=== PATIENT | female | born 1950 | race Caucasian/White ===

== ENCOUNTER 2017-06-09 14:08 | Outpatient (CLI) | payer OTHER ==
--- NOTE | 2017-06-10 13:02 | Mammography Report ---
DIGITAL SCREENING MAMMOGRAM: 06/09/2017 CLINICAL INDICATION: A 67-year-old for screening. COMPARISON: 12/2014, 12/2010, 10/2009, 09/2008, 04/2007. TECHNIQUE: Routine CC and MLO projections were obtained of the breasts. FINDINGS: The breasts again demonstrate scattered fibroglandular densities bilaterally. A few punct ate, typically benign calcifications are present. In the left upper inner central breast, there is a possible nodule. Further evaluation with spot compression views and possible ultrasound is recommen ded. No mammographically suspicious findings are appreciated in the right breast. IMPRESSION: INCOMPLETE EXAMINATION. RECOMMENDATION: Additional evaluation of the left breast as above. BI-RADS category 0, incomplete. STANDARD QUALIFYING STATEMENTS 1. This examination was reviewed with the aid of Computer-Aided Detection (CAD). 2. A negative or benign imaging report should not delay biopsy if clinically suspicious findings are present. Consider surgical consultation if warranted. More than 5% of cancers are not identified by i maging. 3. Dense breasts may obscure an underlying neoplasm. JOB #: [id number] EXT JOB #:[id number]
== END 2017-06-09 14:09 | disposition home or self-care (01) ==
LOC: DI 14:08
PROVIDERS: ATTEND Internal Medicine
DX: Z12.31 Encounter for screening mammogram for malignant neoplasm of breast (principal); R92.8 Other abnormal and inconclusive findings on diagnostic imaging of breast
CPT/HCPCS: 77067

== ENCOUNTER 2017-06-25 11:00 | Outpatient (CLI) | payer OTHER, MEDICARE, BC ==
--- NOTE | 2017-06-25 16:22 | DEXA Report ---
DEXA SCAN: 06/25/2017 CLINICAL INDICATION: Osteopenia. TECHNIQUE: Dual energy x-ray absorptiometry (DXA) was performed on a [employer] system. Regions measured are the AP spine, femoral neck, and, if needed, forearm. COMPARISON: None. In accordance with the International Society for Clinical Densitometry (ISCD) guidelines, data from previous exams may be reanalyzed using current recommendations and techniques. This is done to allow a more accurate basis for comparison with the current study. FINDINGS The data for the lumbar spine is as follows: REGION BMD (g/cm/cm) T-SCORE Z-SCORE L1 0.994 -1.1 -0.3 L2 1.051 -1.2 -0.4 L3 1.052 -1.2 -0.4 L4 1.148 -0.4 0.4 TOTAL 1.066 -1.0 -0.1 NOTE: All evaluable vertebrae are used for classification. The data for the hip is as follows: REGION BMD (g/cm/cm) T-SCORE Z-SCORE Neck 0.811 -1.6 -0.6 TOTAL 0.832 -1.4 -0.7 NOTE: The femoral neck or total proximal femur, whichever is lowest, is used for classification. IMPRESSION: THE WHO CLASSIFICATION BASED ON THE INTERNATIONAL REFERENCE STANDARD IS OSTEOPENIA. THE FRACTURE RISK IS INCREASED. RECOMMENDATION: Patients with diagnosis of osteoporosis or osteopenia should have regular bone mineral density assessment. For those eligible for Medicare, routine testing is allowed once every 2 years. Testing frequency can be increased for patients who have rapidly progressing disease or for those who are receiving medical therapy to restore bone mass. COMMENT: World Health Organization (WHO) definitions for osteoporosis and osteopenia: NORMAL BMD: T-score at -1.0 or higher, fracture risk is low. OSTEOPENIA BMD: T-score between -1.0 and -2.5, fracture risk is increased. OSTEOPOROSIS BMD: T-score at -2.5 or lower, fracture risk high. National Osteoporosis Foundation recommends: 1. Obtain adequate dietary calcium (at least 1200 mg per day) and vitamin D (400 -800 international units per day). 2. Participate, as appropriate, in regular weightbearing and muscle- strengthening exercise. 3. Avoid tobacco use and reduce alcohol and caffeine intake. 4. For more detailed information see the website at www.NOF.org. MTDD
== END 2017-06-25 11:01 | disposition home or self-care (01) ==
LOC: DI 11:00
PROVIDERS: ATTEND Internal Medicine
DX: M85.88 Other specified disorders of bone density and structure, other site (principal)
CPT/HCPCS: 77080

== ENCOUNTER 2017-12-13 15:48 | Emergency (ER) | payer MEDICARE, BC ==
[2017-12-13] MEDS ORDERED: SODIUM CHLORIDE 0.9% 1,000 ML IV ONE (16:28)
--- NOTE | 2017-12-13 16:32 | ED Physician Documentation ---
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 She noted that while she was in [place] her blood pressure was normal and upon return she took her blood pressure on a lark and discovered it was elevated. She has become concerned with this and has taken her blood pressure more and is having some pain in her right arm. She has come to the emergency department after having diastolics over 110. She denies chest pain she denies syncope she denies shortness of breath. Review of Systems Constitutional: denies: Fever, Chills, Myalgias Eyes: denies: Decreased vision Ears: denies: Ear pain Nose: denies: Rhinorrhea / runny nose, Congestion Throat: denies: Sore throat Cardiac: denies: Chest pain / pressure, Palpitations Respiratory: denies: Dyspnea, Cough GI: denies: Abdominal Pain, Nausea, Vomiting, Constipation, Diarrhea : denies: Dysuria, Frequency Skin: denies: Rash Musculoskeletal: reports: Extremity pain. denies: Neck pain, Back pain Neurologic: denies: Generalized weakness, Focal weakness, Numbness, Headache, Head injury, LOC PD PAST MEDICAL HISTORY - Past Medical History Past Medical History: Yes Cardiovascular: High cholesterol, Valve disorder Respiratory: Asthma Endocrine/Autoimmune: HyPOthyroidism GI: GERD, Hemorrhoids BRIDGE CRANE OPERATOR: None : None Psych: ADD/ADHD, Claustrophobia Musculoskeletal: Chronic back pain Derm: None - Past Surgical History Past Surgical History: Yes General: EGD, Appendectomy, Colonoscopy Ortho: Spine surgery /BRIDGE CRANE OPERATOR: Dilation and currettage - Allergies Allergies/Adverse Reactions: Allergies Allergy/AdvReac Type Severity Reaction Status Date / Time cephalexin [Cephalexin] Allergy Intermediate Hives Verified 12/13/17 16:14 codeine [Codeine] Allergy Intermediate Hives Verified 12/13/17 16:14 Penicillins Allergy Intermediate Hives Verified 12/13/17 16:14 - Social History Does the pt smoke?: No Smoking Status: Never smoker Does the pt drink ETOH?: Yes Does the pt have substance abuse?: No - Immunizations Immunizations are current?: Yes - POLST Patient has POLST: No PD ED PE NORMAL - Vitals Vital signs reviewed: Yes (tachy and hypertensive mild ) - General General: Alert and oriented X 3, No acute distress - HEENT HEENT: Atraumatic, PERRL, EOMI - Neck Neck: Supple, no meningeal sign, No bony TTP - Cardiac Cardiac: RRR, No murmur - Respiratory Respiratory: No respiratory distress, Clear bilaterally - Abdomen Abdomen: Soft, Non tender - Back Back: No CVA TTP, No spinal TTP - Derm Derm: Normal color, Warm and dry, No rash - Extremities Extremities: No deformity, No edema - Neuro Neuro: Alert and oriented X 3, 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 ) Compare to prior EKG: Old EKG unavailable Computer interpretation: Disagree with computer (I cannot make out ST elevation in the other leads. ) - Labs Labs: Laboratory Tests 12/13/17 12/13/17 12/13/17 16:35 16:35 16:35 WBC 8.4 RBC 4.46 Hgb 13.3 Hct 40.0 MCV 89.6 MCH 29.8 MCHC 33.3 RDW 12.9 Plt Count 289 MPV 7.5 L Neut # 4.9 Lymph # 2.7 Jay # 0.5 Eos # 0.1 Baso # 0.1 Absolute Nucleated RBC 0.01 Nucleated RBC % 0.1 Sodium 141 Potassium 3.4 L Chloride 104 Carbon Dioxide 27 Anion Gap 10.0 BUN 20 Creatinine 1.1 H Estimated GFR (MDRD) 50 L Glucose 130 H Calcium 9.6 Total Bilirubin 0.5 AST 28 ALT 32 Alkaline Phosphatase 75 Troponin I < 0.04 Total Protein 7.6 Albumin 4.2 Globulin 3.4 Albumin/Globulin Ratio 1.2 Lipase 10 L Urine Color Urine Clarity Urine pH Ur Specific Adams Urine Protein Urine Glucose (UA) Urine Ketones Urine Occult Blood Urine Nitrite Urine Bilirubin Urine Urobilinogen Ur Leukocyte Esterase Ur Microscopic Review Urine Culture Comments 12/13/17 17:40 WBC RBC Hgb Hct MCV MCH MCHC RDW Plt Count MPV Neut # Lymph # Jay # Eos # Baso # Absolute Nucleated RBC Nucleated RBC % Sodium Potassium Chloride Carbon Dioxide Anion Gap BUN Creatinine Estimated GFR (MDRD) Glucose Calcium Total Bilirubin AST ALT Alkaline Phosphatase Troponin I Total Protein Albumin Globulin Albumin/Globulin Ratio Lipase Urine Color YELLOW Urine Clarity CLEAR Urine pH 6.5 Ur Specific Adams 1.015 Urine Protein NEGATIVE Urine Glucose (UA) NEGATIVE Urine Ketones NEGATIVE Urine Occult Blood NEGATIVE Urine Nitrite NEGATIVE Urine Bilirubin NEGATIVE Urine Urobilinogen 0.2 (NORMAL) Ur Leukocyte Esterase NEGATIVE Ur Microscopic Review NOT INDICATED Urine Culture Comments NOT INDICATED PD MEDICAL DECISION MAKING - ED course Complexity details: reviewed results, re-evaluated patient, considered differential, d/w patient, d/w family ED course: 67-year-old female with a new onset of hypertension is found to be mildly dehydrated after a trip to [place]. She is administered saline and trop is checked. Everything else checks out OK and she is discharged with encouragement to attempt all modes to improve blood pressure prior to initiation of treatment. Departure - Departure Disposition: 01 Home, Self Care Clinical Impression: Dehydration Hypertension Qualifiers: Hypertension type: unspecified Qualified Code(s): I10 - Essential (primary) hypertension Condition: Stable Instructions: ED Dehydration, ED Hypertension Poss Follow-Up: César Galloway MD [Primary Care Provider] - Comments: Today in the Emergency Department your blood pressure was elevated. This can happen from the stress of the visit itself, from a current illness or circumstance or from uncontrolled hypertension. If you take blood pressure medications take your usual mediations, have your blood pressure re-checked in an appropriate setting and follow up any elevation with your primary care doctor. Discharge Date/Time: 12/13/17 18:41
[2017-12-13 16:43] LABS: BASOPHILS # (AUTO) 0.1 10^3/uL (0.0-0.1); BASOPHILS % (AUTO) 0.8 %; EOSINOPHILS # (AUTO) 0.1 10^3/uL (0.0-0.7); EOSINOPHILS % (AUTO) 1.7 %; HGB - HEMOGLOBIN 13.3 g/dL (12.0-16.0); LYMPHOCYTES # (AUTO) 2.7 10^3/uL (1.5-3.5); LYMPHOCYTES % (AUTO) 32.2 %; MEAN CORPUSCULAR HEMOGLOBIN 29.8 pg (27.0-31.0); MEAN CORPUSCULAR HGB CONC 33.3 g/dL (32.0-36.0); MEAN CORPUSCULAR VOLUME 89.6 fL (81.0-99.0); MEAN PLATELET VOLUME 7.5 fL (7.9-10.8); MONOCYTES # (AUTO) 0.5 10^3/uL (0.0-1.0); MONOCYTES % (AUTO) 6.5 %; NEUTROPHILS # (AUTO) 4.9 10^3/uL (1.5-6.6); NEUTROPHILS % (AUTO) 58.8 %; PLT - PLATELET COUNT 289 10^3/uL (130-450); RED BLOOD COUNT 4.46 10^6/uL (4.20-5.40); RED CELL DISTRIBUTION WIDTH 12.9 % (12.0-15.0); WHITE BLOOD COUNT 8.4 x10^3/uL (4.8-10.8)
[2017-12-13 16:57] LABS: ALBUMIN 4.2 g/dL (3.2-5.5); ALBUMIN/GLOBULIN RATIO 1.2 (1.0-2.2); BILIRUBIN,TOTAL 0.5 mg/dL (0.2-1.0); CALCIUM 9.6 mg/dL (8.5-10.3); CREATININE 1.1 mg/dL (0.4-1.0); TOTAL PROTEIN 7.6 g/dL (6.7-8.2)
[2017-12-13] MEDS ORDERED: POTASSIUM BICARB 25 MEQ TABLET PO STA (17:13)
[2017-12-13 17:45] LABS: BILIRUBIN,URINE NEGATIVE (NEGATIVE); GLUCOSE, URINE (UA) NEGATIVE (NEGATIVE); KETONES,URINE (UA) NEGATIVE (NEGATIVE); LEUKOCYTE ESTERASE, URINE NEGATIVE (NEGATIVE); NITRITE,URINE NEGATIVE (NEGATIVE); OCCULT BLOOD,URINE NEGATIVE (NEGATIVE); PH,URINE 6.5 PH (5.0-7.5); PROTEIN,URINE NEGATIVE (NEGATIVE); UROBILINOGEN,URINE 0.2 (NORMAL) E.U./dL (NORMAL)
[2017-12-13 17:47] LABS: CLARITY,URINE CLEAR (CLEAR)
[2017-12-13 18:14] VITALS: BP 176/96
== END 2017-12-13 18:41 | disposition home or self-care (01) ==
LOC: ED 15:48
DX: E86.0 Dehydration (principal); I10 Essential (primary) hypertension; J45.909 Unspecified asthma, uncomplicated; E78.00 Pure hypercholesterolemia, unspecified; E03.9 Hypothyroidism, unspecified
CPT/HCPCS: 36415; 80053; 81003; 83690; 84484; 85025; 93005; 96360; 99283; 99284; A9270; 81001; 87086

== ENCOUNTER 2018-10-13 16:21 | Outpatient (CLI) | payer MEDICARE, BC ==
[2018-10-13 16:41] LABS: BASOPHILS # (AUTO) 0.1 10^3/uL (0.0-0.1); BASOPHILS % (AUTO) 0.7 %; EOSINOPHILS # (AUTO) 0.1 10^3/uL (0.0-0.7); EOSINOPHILS % (AUTO) 1.5 %; HGB - HEMOGLOBIN 13.3 g/dL (12.0-16.0); LYMPHOCYTES % (AUTO) 33.7 %; MEAN CORPUSCULAR HEMOGLOBIN 30.5 pg (27.0-31.0); MEAN CORPUSCULAR HGB CONC 33.2 g/dL (32.0-36.0); MEAN CORPUSCULAR VOLUME 91.7 fL (81.0-99.0); MEAN PLATELET VOLUME 7.9 fL (7.9-10.8); MONOCYTES # (AUTO) 0.3 10^3/uL (0.0-1.0); MONOCYTES % (AUTO) 3.9 %; NEUTROPHILS # (AUTO) 5.4 10^3/uL (1.5-6.6); NEUTROPHILS % (AUTO) 60.2 %; PLT - PLATELET COUNT 317 10^3/uL (130-450); RED BLOOD COUNT 4.36 10^6/uL (4.20-5.40); RED CELL DISTRIBUTION WIDTH 13.3 % (12.0-15.0); WHITE BLOOD COUNT 8.9 x10^3/uL (4.8-10.8)
[2018-10-13 16:56] LABS: ALKALINE PHOSPHATASE 74 IU/L (42-121); ALT ALANINE AMINOTRANSFERASE 31 IU/L (10-60); AST ASPARTATE AMINOTRANSFERASE 33 IU/L (10-42); BILIRUBIN,TOTAL 0.5 mg/dL (0.2-1.0); BUN - BLOOD UREA NITROGEN 19 mg/dL (6-20); CREATININE 0.9 mg/dL (0.4-1.0); GFR - MDRD 63 (>89); TOTAL PROTEIN 7.3 g/dL (6.7-8.2)
[2018-10-13 18:11] LABS: BILIRUBIN,DIRECT < 0.1 mg/dL (0.1-0.5)
--- NOTE | 2018-10-14 02:07 | XRAY Report ---
Reason: COUGH Procedure Date: 10/13/2018 Accession Number: [id number] / [id number] Procedure: XR - Chest 2 View X-Ray CPT Code: 02714 FULL RESULT: EXAM: CHEST RADIOGRAPHY EXAM DATE: 10/13/2018 04:58 PM. CLINICAL HISTORY: Cough for months COMPARISON: CHEST 2 VIEW PA/LAT 12/30/2014 3:00 PM. TECHNIQUE: 2 views. FINDINGS: Lungs/Pleura: No focal opacities evident. No pleural effusion. No pneumothorax. Normal volumes. Mediastinum: Heart and mediastinal contours are unremarkable. Other: Lower cervical spinal fixation hardware. IMPRESSION: Stable appearance of the chest without acute cardiopulmonary abnormality. RADIA
== END 2018-10-13 16:22 | disposition home or self-care (01) ==
LOC: DI 16:21
PROVIDERS: ATTEND Internal Medicine
DX: R05 Cough (principal); B35.1 Tinea unguium
CPT/HCPCS: 36415; 71046; 80076; 82565; 84520; 85025

== ENCOUNTER 2021-05-30 10:06 | Outpatient (CLI) | payer MEDICARE, BC ==
--- NOTE | 2021-05-31 08:40 | Mammography Report ---
BILATERAL DIGITAL SCREENING MAMMOGRAM 3D/2D: 05/30/2021 CLINICAL: Routine screening. Comparison is made to exams dated: 07/23/2017 ultrasound, 07/23/2017 mammogram, 06/09/2017 mammogram, mammogram, and 12/15/2010 mammogram - [facility]. There are scattered fibro glandular elements in both breasts. No significant masses, calcifications, or other findings are seen in either breast. There has been no significant interval change. IMPRESSION: NEGATIVE There is no mammographic evidence of malignancy. A 1 year screening mammogram is recommended. This exam was interpreted at Station ID: [id number]. NOTE: For mammograms, a report in lay terms will be sent to the patient. Approximately 15% of breast malignancies will not be visualized mammographically. In the management of a palpable breast mass, a negative mammogram must not discourage biopsy of a clinically suspicious lesion. Electronically Signed By: Javier Stephens M.D., jr/penrad:05/30/2021 16:37:59 ACR BI-RADS Category 1: Negative 3341F PARENCHYMAL PATTERN: (A) - The breast(s) demonstrate(s) scattered fibroglandular densities. BI-RADS CATEGORY: (1) - 1 RECOMMENDATION: (ANNUAL) - Recommend routine annual screening mammography. [id number] 1 year screening LATERALITY: (B)
== END 2021-05-30 10:07 | disposition home or self-care (01) ==
LOC: DI 10:06
DX: Z12.31 Encounter for screening mammogram for malignant neoplasm of breast (principal)

== ENCOUNTER 2021-05-30 11:17 | Outpatient (CLI) | payer MEDICARE, BC ==
--- NOTE | 2021-05-30 16:33 | DEXA Report ---
PROCEDURE: Dexa Spine and/or Hip INDICATIONS: OSTEOPENIA TECHNIQUE: Dual energy x-ray absorptiometry (DXA) was performed on a [employer] System. Regions measur ed are the AP Spine, femoral neck, and if needed forearm. COMPARISON: DEXA 06/25/2017 FINDINGS: Lumbar Spine: Bone Mineral Density 1.102 g/cm/cm,T score -0.7, compared to -1.0 Left Hip: Bone Mineral Density 0.840 g/cm/cm,T score -1.3, compared to -1.4 Left Femoral Neck: Bone Mineral Density 0.797 g/cm/cm, T score -1.7, compared to -1.6 (T score greater or equal to -1.0: NORMAL) (T score from -1.1 to -2.4: OSTEOPENIA) (T score less than or equal to -2.5 to: OSTEOPOROSIS) Impression: Minimal progressive appearance of moderate osteopenia within the left femoral neck with m inimal increased bone mineral density of the left hip, minimal osteopenia as well as improved bone mi neral density of the lumbar spine. Patients with diagnosis of osteoporosis or osteopenia should have regular bone mineral density assess ment. For those eligible for Medicare, routine testing is allowed once every 2 years. Testing frequ ency can be increased for patients who have rapidly progressing disease or for those who are receivin g medical therapy to restore bone mass. Reviewed by: Mabel Deluca MD on 05/30/2021 4:31 PM PDT Approved by: Mabel Deluca MD on 05/30/2021 4:31 PM PDT Station ID: [id number]
== END 2021-05-30 11:18 | disposition home or self-care (01) ==
LOC: DI 11:17
PROVIDERS: ATTEND Physician Assistant
DX: M85.89 Other specified disorders of bone density and structure, multiple sites (principal)

== ENCOUNTER 2021-06-02 13:34 | Outpatient (CLI) | payer MEDICARE, BC | END 2021-06-02 13:35 | disposition home or self-care (01) | LOC: RT 13:34 | PROVIDERS: ATTEND Physician Assistant | DX: J45.909 Unspecified asthma, uncomplicated (principal) | CPT/HCPCS: 94060 ==

== ENCOUNTER 2021-06-15 12:23 | Outpatient (CLI) | payer MEDICARE, BC ==
[2021-06-15] MEDS ORDERED: IOVERSOL 320 50 ML VIAL ONE (12:39)
[2021-06-15] MEDS ORDERED: IOVERSOL 320 100 ML VIAL IVP ONE ×2 (12:39→14:06)
[2021-06-15] MEDS ORDERED: IOVERSOL 320 50 ML VIAL PO ONE (14:07)
--- NOTE | 2021-06-15 16:49 | CT Report ---
PROCEDURE: Abdomen/Pelvis W INDICATIONS: ABD PAIN CONTRAST: IV CONTRAST: Optiray 320 ml: 100 PO CONTRAST: Optiray 320 ml50 TECHNIQUE: After the administration of intravenous and oral contrast, 5 mm thick sections acquired from the diap hragms to the symphysis. 5 mm thick coronal and sagittal reformats were acquired. For radiation dos e reduction, the following was used: automated exposure control, adjustment of mA and/or kV accordin g to patient size. COMPARISON: None. FINDINGS: Image quality: Excellent. ABDOMEN: Lung bases: There is mild linear atelectasis or scarring in the left lower lobe. Heart size is normal . There is a small hiatal hernia. Solid organs: There are 2 small hypervascular enhancing lesions within the left hepatic lobe, measur ing up to 0.8 x 0.7 cm on series 3 image 10 and 1.1 x 1.1 cm on series 3 image 17. Findings are sugge stive of a flash filling hemangiomas. There is diffuse hypoattenuation of the liver consistent with f atty infiltration. Gallbladder appears within normal limits without calcified gallstones. Biliary sys tem is non dilated. Pancreas enhances normally. No adrenal nodules. The spleen is normal in size. Kidneys demonstrate no hydronephrosis. Peritoneum and bowel: Bowel loops demonstrate normal wall thickness and caliber. No pericecal inflam matory changes to suggest appendicitis. No free fluid or air. Nodes and vessels: No retroperitoneal or mesenteric adenopathy by size criteria. Aorta and inferior vena cava are normal in size. Miscellaneous: No ventral hernias. PELVIS: Genitourinary: Bladder wall thickness is normal. Miscellaneous: No inguinal hernias or adenopathy. Bones: No suspicious bony lesions. No vertebral body compression fractures. IMPRESSION: 1. No definite acute abdominal abnormality. 2. Small hypervascular lesions demonstrated within the left hepatic lobe. The findings are suggestive of a flash filling hemangiomas but are nonspecific. Further evaluation may be obtained with a liver protocol MRI or CT if clinically indicated. 3. Hepatic steatosis. Reviewed by: Vincenzo Casanova MD on 06/15/2021 4:48 PM PDT Approved by: Vincenzo Casanova MD on 06/15/2021 4:48 PM PDT Station ID: [id number]
== END 2021-06-15 12:24 | disposition home or self-care (01) ==
LOC: DI 12:23
PROVIDERS: ATTEND Internal Medicine
DX: K76.0 Fatty (change of) liver, not elsewhere classified (principal); K76.9 Liver disease, unspecified; R10.84 Generalized abdominal pain; R10.10 Upper abdominal pain, unspecified
CPT/HCPCS: 74177; Q9967

== ENCOUNTER 2021-10-06 14:16 | Emergency (ER) | payer MEDICARE, BC ==
--- NOTE | 2021-10-06 14:43 | ED Physician Documentation ---
History of Present Illness - Stated complaint Stated Complaint: IRREGULAR HEARTBEAT/DIZZY - Chief complaint Chief Complaint: Cardiac - Additonal information Additional information: 71-year-old female presents emergency department for evaluation of heart palpitations, lightheadedness and feeling short of breath. She reports that every morning for about the last week she has been feeling the palpitations. She is attempted vagal maneuvers which is typically worked until today when they have become persistent. She denies any chest pain but is sometimes feeling short of air. Nearly fainted today. No previous history of myocardial infarction or pulmonary disorders. She does have a remote history of mitral valve regurg. Unknown previous echo results. Past medical history is most significant for depression, hypertension acid reflux Meds: Losartan, omeprazole, Wellbutrin, cetirizine, fish oil, multivitamin, Tums Social: No tobacco, no alcohol Review of Systems Constitutional: denies: Fever, Chills Eyes: reports: Reviewed and negative Ears: reports: Reviewed and negative Nose: reports: Reviewed and negative Throat: reports: Reviewed and negative Cardiac: reports: Palpitations, Other (near syncope). denies: Chest pain / pressure, Pedal edema, Calf pain Respiratory: denies: Dyspnea, Cough, Hemoptysis, Wheezing GI: reports: Reviewed and negative : reports: Reviewed and negative Skin: reports: Reviewed and negative PD PAST MEDICAL HISTORY - Past Medical History Cardiovascular: High cholesterol, Valve disorder Respiratory: Asthma Endocrine/Autoimmune: HyPOthyroidism GI: GERD, Hemorrhoids GAS BURNER OPERATOR: None : None Psych: ADD/ADHD, Claustrophobia Musculoskeletal: Chronic back pain Derm: None - Past Surgical History Past Surgical History: Yes General: EGD, Appendectomy, Colonoscopy Ortho: Spine surgery /GAS BURNER OPERATOR: Dilation and currettage - Present Medications Home Medications: Ambulatory Orders Medication Instructions Recorded Confirmed Losartan [Cozaar] 100 mg PO QPM 10/06/21 10/06/21 - Allergies Allergies/Adverse Reactions: Allergies Allergy/AdvReac Type Severity Reaction Status Date / Time cephalexin [Cephalexin] Allergy Intermediate Hives Verified 12/13/17 16:14 codeine [Codeine] Allergy Intermediate Hives Verified 12/13/17 16:14 Penicillins Allergy Intermediate Hives Verified 12/13/17 16:14 - Social History Does the pt smoke?: No Smoking Status: Never smoker Does the pt drink ETOH?: Yes Does the pt have substance abuse?: No - Immunizations Immunizations are current?: Yes - POLST Patient has POLST: No PD ED PE NORMAL - General General: Alert and oriented X 3, No acute distress - HEENT HEENT: Atraumatic - Neck Neck: Supple, no meningeal sign, No adenopathy - Cardiac Cardiac: No gallop, No rub. No: RRR (Bradycardia: Mobitz type II AV block), No murmur (Mild systolic murmur.) - Respiratory Respiratory: No respiratory distress, Clear bilaterally - Abdomen Abdomen: Normal bowel sounds, Soft, Non tender - Back Back: No CVA TTP - Derm Derm: Normal color, Warm and dry, No rash - Extremities Extremities: No deformity, No tenderness to palpate, Normal ROM s pain - Neuro Neuro: Alert and oriented X 3 Eye Opening: Spontaneous Motor: Obeys Commands Verbal: Oriented GCS Score: 15 Results - Vitals Vitals: Vital Signs - 24 hr 10/06/21 10/06/21 10/06/21 14:22 15:00 15:30 Temperature 36.2 C L Heart Rate 72 44 L 45 L Respiratory 18 15 19 Rate Blood Pressure 151/84 H 146/60 H 159/70 H O2 Saturation 95 96 99 10/06/21 10/06/21 10/06/21 16:00 16:30 17:00 Temperature Heart Rate 43 L 41 L 41 L Respiratory 15 13 15 Rate Blood Pressure 145/64 H 147/62 H 147/57 H O2 Saturation 98 99 99 10/06/21 10/06/21 10/06/21 17:30 18:00 19:06 Temperature Heart Rate 41 L 41 L 46 L Respiratory 16 15 14 Rate Blood Pressure 133/61 H 133/57 H 139/58 H O2 Saturation 99 99 99 10/06/21 10/06/21 10/06/21 19:30 19:59 20:04 Temperature Heart Rate 45 L 46 L 44 L Respiratory 16 14 14 Rate Blood Pressure 143/63 H 158/59 H 158/59 H O2 Saturation 99 98 98 10/06/21 10/06/21 20:35 21:43 Temperature Heart Rate 50 L 45 L Respiratory 12 16 Rate Blood Pressure 117/71 147/57 H O2 Saturation 98 97 Oxygen O2 Source Room air - EKG (time done) 1418 Rate: Rate (enter#) (55) Rhythm: Sinus bradycardia, Other Intervals: Normal [place] (Mobitz II), RBBB, Other (LAFB). No: Prolonged QT QRS: LVH Ischemia: Normal ST segments Compare to prior EKG: Changed from prior EKG (now in Mobitz type II AV block) Computer interpretation: Agree with computer - Labs Labs: Laboratory Tests 10/06/21 10/06/21 10/06/21 14:39 14:39 14:39 WBC 8.8 RBC 4.37 Hgb 12.9 Hct 41.3 MCV 94.5 MCH 29.5 MCHC 31.2 L RDW 13.1 Plt Count 262 MPV 10.0 Neut # (Auto) 4.0 Lymph # (Auto) 4.1 H [place] # (Auto) 0.5 Eos # (Auto) 0.2 Baso # (Auto) 0.0 Absolute Nucleated RBC 0.00 Nucleated RBC % 0.0 Sodium 137 Potassium 4.2 Chloride 103 Carbon Dioxide 21 Anion Gap 13.0 BUN 18 Creatinine 1.1 H Estimated GFR (MDRD) 49 L Glucose 120 H Calcium 9.7 Phosphorus 3.3 Magnesium 2.2 Total Bilirubin 0.6 AST 23 ALT 22 Alkaline Phosphatase 60 Troponin I High Sens 4.1 Total Protein 7.2 Albumin 4.0 Globulin 3.2 Albumin/Globulin Ratio 1.3 Lipase 27 TSH Nasal Adenovirus (PCR) Nasal B. parapertussis DNA (PCR) Nasal Coronavir 229E PCR Nasal Coronavir HKU1 PCR Nasal Coronavir NL63 PCR Nasal Coronavir OC43 PCR Nasal Enterovir/Rhinovir PCR Nasal Influenza B PCR Nasal Influenza A PCR Nasal Parainfluen 1 PCR Nasal Parainfluen 2 PCR Nasal Parainfluen 3 PCR Nasal Parainfluen 4 PCR Nasal RSV (PCR) Nasal B.pertussis DNA PCR Nasal C.pneumoniae (PCR) Finn Human Metapneumo PCR Nasal M.pneumoniae (PCR) Nasal SARS-CoV-2 (PCR) 10/06/21 10/06/21 14:39 15:55 WBC RBC Hgb Hct MCV MCH MCHC RDW Plt Count MPV Neut # (Auto) Lymph # (Auto) [place] # (Auto) Eos # (Auto) Baso # (Auto) Absolute Nucleated RBC Nucleated RBC % Sodium Potassium Chloride Carbon Dioxide Anion Gap BUN Creatinine Estimated GFR (MDRD) Glucose Calcium Phosphorus Magnesium Total Bilirubin AST ALT Alkaline Phosphatase Troponin I High Sens Total Protein Albumin Globulin Albumin/Globulin Ratio Lipase TSH 5.43 Nasal Adenovirus (PCR) NOT DETECTED Nasal B. parapertussis DNA (PCR) NOT DETECTED Nasal Coronavir 229E PCR NOT DETECTED Nasal Coronavir HKU1 PCR NOT DETECTED Nasal Coronavir NL63 PCR NOT DETECTED Nasal Coronavir OC43 PCR NOT DETECTED Nasal Enterovir/Rhinovir PCR NOT DETECTED Nasal Influenza B PCR NOT DETECTED Nasal Influenza A PCR NOT DETECTED Nasal Parainfluen 1 PCR NOT DETECTED Nasal Parainfluen 2 PCR NOT DETECTED Nasal Parainfluen 3 PCR NOT DETECTED Nasal Parainfluen 4 PCR NOT DETECTED Nasal RSV (PCR) NOT DETECTED Nasal B.pertussis DNA PCR NOT DETECTED Nasal C.pneumoniae (PCR) NOT DETECTED Finn Human Metapneumo PCR NOT DETECTED Nasal M.pneumoniae (PCR) NOT DETECTED Nasal SARS-CoV-2 (PCR) NOT DETECTED - Rads (name of study) CXR Radiology: Final report received (No acute process) PD MEDICAL DECISION MAKING - ED course Complexity details: reviewed old records, reviewed results, re-evaluated patient, considered differential, d/w patient ED course: 71-year-old female presents emergency department for evaluations of lightheadedness and near syncope. She is having frequent palpitations that began about one week ago. On presentation to the emergency department she appears rather well and is not having any chest pain however her initial EKG showed an initially thought to be a prolonged QTC syndrome. However after closer evaluation it appears to be a AV block type II. This was discussed with Dr. Wang on callcardiologist at [facility]. Patient is symptomatic with her bradycardia and he feels she will likely need an emergent pacemaker placed. Thus we will begin the process of looking to transfer her to a hospital that has appropriate cardiology services. This will choose proved to be quite challenging as all of the hospitals along the [address] are full or at capacity. Findings were discuss with patient. Pacing pads are in place on the patient and though bradycardic, she is hemodynamically stable and normotensive. Screening cbc and electrolytes and troponin are unremarkable. 2154: Patient will be signed out to my nighttime colleague Dr. Bain to follow- up on the possibility of transfer for her second-degree AV block Mobitz type II. Patient remains hemodynamically stable here in the emergency department. Departure - Departure Disposition: 02 Transfer Acute Care Hosp Clinical Impression: Bradycardia with 41-50 beats per minute, Mobitz type II atrioventricular block Condition: Stable Record reviewed to determine appropriate education?: Yes
[2021-10-06 14:47] LABS: BASOPHILS % (AUTO) 0.5 %; EOSINOPHILS # (AUTO) 0.2 10^3/uL (0.0-0.7); EOSINOPHILS % (AUTO) 1.8 %; HCT - HEMATOCRIT 41.3 % (37.0-47.0); HGB - HEMOGLOBIN 12.9 g/dL (12.0-16.0); LYMPHOCYTES # (AUTO) 4.1 10^3/uL (1.5-3.5); LYMPHOCYTES % (AUTO) 46.4 %; MEAN CORPUSCULAR HEMOGLOBIN 29.5 pg (27.0-31.0); MEAN CORPUSCULAR HGB CONC 31.2 g/dL (32.0-36.0); MEAN CORPUSCULAR VOLUME 94.5 fL (81.0-99.0); MONOCYTES # (AUTO) 0.5 10^3/uL (0.0-1.0); MONOCYTES % (AUTO) 5.2 %; NEUTROPHILS % (AUTO) 45.9 %; PLT - PLATELET COUNT 262 10^3/uL (130-450); RED BLOOD COUNT 4.37 10^6/uL (4.20-5.40); RED CELL DISTRIBUTION WIDTH 13.1 % (12.0-15.0); WHITE BLOOD COUNT 8.8 x10^3/uL (4.8-10.8)
[2021-10-06] MEDS ORDERED: POTASSIUM CHLORIDE 20 MEQ TABLET PO STA (14:54)
[2021-10-06 15:02] LABS: ALBUMIN/GLOBULIN RATIO 1.3 (1.0-2.2); BILIRUBIN,TOTAL 0.6 mg/dL (0.2-1.0); CALCIUM 9.7 mg/dL (8.5-10.3); CREATININE 1.1 mg/dL (0.4-1.0); MAGNESIUM 2.2 mg/dL (1.7-2.8); PHOSPHORUS 3.3 mg/dL (2.5-4.6); POTASSIUM 4.2 mmol/L (3.5-5.0); TOTAL PROTEIN 7.2 g/dL (6.7-8.2)
--- NOTE | 2021-10-06 15:35 | XRAY Report ---
PROCEDURE: Chest 1 View X-Ray INDICATIONS: Chest pain TECHNIQUE: One view of the chest was acquired. COMPARISON: 10/13/2018, 12/30/2014 FINDINGS: Surgical changes and devices: There is partial visualization of lower cervical spine fixation hardwar e Lungs and pleura: No pleural effusions or pneumothorax. Lungs are clear. Mediastinum: Mediastinal contours appear normal. Heart size is normal. Bones and chest wall: No suspicious bony lesions. Overlying soft tissues appear unremarkable. IMPRESSION: No acute cardiopulmonary process is seen. Reviewed by: Manoj Betts MD on 10/06/2021 2:33 PM [facility] Approved by: Manoj Betts MD on 10/06/2021 2:33 PM [facility] Station ID: [id number]
[2021-10-06] MEDS ORDERED: SODIUM CHLORIDE 0.9% 1,000 ML IV STA (16:11)
[2021-10-06 17:02] LABS: B. PARAPERTUSSIS- RESP PCR PAN NOT DETECTED; CORONAVIRUS 229E-RESP PCR NOT DETECTED; CORONAVIRUS HKU1-RESP PCR NOT DETECTED; CORONAVIRUS NL63-RESP PCR NOT DETECTED; CORONAVIRUS OC43-RESP PCR NOT DETECTED; HUMAN METAPNEUMOVIRUS NOT DETECTED; INFLUENZA A- RESP PCR PANEL NOT DETECTED; INFLUENZA B - RESP PCR PANEL NOT DETECTED; PARAINFLUENZA VIRUS 1 NOT DETECTED; PARAINFLUENZA VIRUS 2 NOT DETECTED; PARAINFLUENZA VIRUS 3 NOT DETECTED; PARAINFLUENZA VIRUS 4 NOT DETECTED; RHINOVIRUS/ENTEROVIRUS NOT DETECTED; RSV- RESP PCR PANEL NOT DETECTED; SARS-CoV-2 -RESP PCR PANEL NOT DETECTED
[2021-10-06 17:03] LABS: B. PERTUSSIS- RESP PCR PANEL NOT DETECTED; C. PNEUMONIAE- RESP PCR PANEL NOT DETECTED; M. PNEUMONIAE- RESP PCR PANEL NOT DETECTED
[2021-10-07 01:36] VITALS: BP 115/42
== END 2021-10-07 02:53 | disposition short-term general hospital (02) ==
LOC: ED 14:16
DX: I44.1 Atrioventricular block, second degree (principal); R00.1 Bradycardia, unspecified; Z20.822 Contact with and (suspected) exposure to COVID-19
CPT/HCPCS: 0202U; 36415; 80053; 83690; 83735; 84100; 84443; 84484; 85025; 85379; 93005; 99284; 99285

== ENCOUNTER 2021-10-07 02:42 | Outpatient (CLI) | payer MEDICARE, BC | END 2021-10-07 02:43 | disposition short-term general hospital (02) | LOC: EMS 02:42 | PROVIDERS: ATTEND Emergency Medicine | DX: I44.1 Atrioventricular block, second degree (principal) | CPT/HCPCS: A0425; A0428 ==

== ENCOUNTER 2022-06-17 13:53 | Outpatient (CLI) | payer MEDICARE, BC ==
--- NOTE | 2022-06-17 15:29 | XRAY Report ---
PROCEDURE: Chest 2 View X-Ray INDICATIONS: OTHER SPECIFIED POSTPROCEDURAL STATES TECHNIQUE: 2 view(s) of the chest. COMPARISON: None. FINDINGS: Surgical changes and devices: Left chest wall to the cardiac pacing device with leads in unchanged p osition from prior study. Median sternotomy changes with left atrial appendage occlusion device and a ortic valve replacement again noted. Lungs and pleura: No pleural effusions or pneumothorax. Lungs are clear. Mediastinum: Mediastinal contours are normal. Heart size is normal. Bones and chest wall: No suspicious bony abnormalities. Soft tissues appear unremarkable. IMPRESSION: Postprocedural changes detailed above. No significant change from prior study. No acute c ardiopulmonary process demonstrated radiographically. Reviewed by: Javier Stephens MD on 06/17/2022 3:27 PM PDT Approved by: Javier Stephens MD on 06/17/2022 3:27 PM PDT Station ID: [id number]
== END 2022-06-17 13:54 | disposition home or self-care (01) ==
LOC: DI 13:53
PROVIDERS: ATTEND Registered Nurse Registered Nurse First Assistant
DX: I50.22 Chronic systolic (congestive) heart failure (principal); Z98.890 Other specified postprocedural states; Z95.0 Presence of cardiac pacemaker

== ENCOUNTER 2022-07-17 13:34 | Outpatient (CLI) | payer MEDICARE, BC ==
[2022-07-17 13:57] LABS: HCT - HEMATOCRIT 32.8 % (37.0-47.0); HGB - HEMOGLOBIN 10.3 g/dL (12.0-16.0); MEAN CORPUSCULAR HEMOGLOBIN 28.8 pg (27.0-31.0); MEAN CORPUSCULAR HGB CONC 31.4 g/dL (32.0-36.0); MEAN CORPUSCULAR VOLUME 91.6 fL (81.0-99.0); MEAN PLATELET VOLUME 9.6 fL (7.9-10.8); RED BLOOD COUNT 3.58 10^6/uL (4.20-5.40); RED CELL DISTRIBUTION WIDTH 13.7 % (12.0-15.0); WHITE BLOOD COUNT 7.3 x10^3/uL (4.8-10.8)
[2022-07-17 14:03] LABS: ALBUMIN 3.9 g/dL (3.2-5.5); ALBUMIN/GLOBULIN RATIO 1.1 (1.0-2.2); BILIRUBIN,TOTAL 0.4 mg/dL (0.2-1.0); CALCIUM 9.6 mg/dL (8.5-10.3); POTASSIUM 4.2 mmol/L (3.5-5.0); TOTAL PROTEIN 7.4 g/dL (6.7-8.2)
== END 2022-07-17 13:35 | disposition home or self-care (01) ==
LOC: LAB 13:34
PROVIDERS: ATTEND Nurse Practitioner
DX: I50.22 Chronic systolic (congestive) heart failure (principal); I34.0 Nonrheumatic mitral (valve) insufficiency
CPT/HCPCS: 36415; 80053; 85027

== ENCOUNTER 2023-02-13 06:27 | Day surgery (SDC) | payer MEDICARE, BC ==
[~2023-02-13 06:27] MED LIST: CYCLOPENTOLATE 1% OPHTH DROPS 2 ML ONE; KETOROLAC 0.45% OPHTH DROPS ONE; PHENYLEPHRINE 2.5% OPHTH 2 ML DROPS ONE; PROPARACAINE 0.5% OPHTH DROPS 15 ML ONE
[2023-02-13] MEDS ORDERED: LACTATED RINGERS 1,000 ML IV ONE (06:52)
[2023-02-13] MEDS ORDERED: TRIAMCIN/MOXIFLOX OPHTHALMIC 0.6 ML VIAL IO ONE ×2 (07:01→07:36)
[2023-02-13] MEDS ORDERED: EPINEPHrine 1 MG/ML AMP ONE (07:01)
[2023-02-13] MEDS ORDERED: TIMOLOL 0.5% OPHTH DROPS ONE (07:02)
[2023-02-13] MEDS ORDERED: VANCOMYCIN OPHTH (TOPICAL) 10 MG/ML SYRINGE ONE (07:02)
[2023-02-13] MEDS ORDERED: BSS/LIDOCAINE/EPINEPHRINE 1 ML VIAL ONE (07:02)
[2023-02-13] MEDS ORDERED: BRIMONIDINE 0.2% OPHTH DROPS 5 ML ONE (07:02)
--- NOTE | 2023-02-13 07:05 | ANESTHESIA ---
Pre-Anesthesia VS, & Labs - Diagnosis left senile cataract - Procedure left cataract extraction with IOL Vital Signs: Temp Pulse Resp BP Pulse Ox O2 Flow Rate 36.8 C 72 16 149/79 H 97 02/13/23 06:40 02/13/23 06:40 02/13/23 06:40 02/13/23 06:40 02/13/23 06:40 Height: 5 ft 6 in Weight (kg): 79.9 kg Body Mass Index: 28.4 BMI Classification: Overweight - NPO >8 hours - Is Patient ?: No Home Medications and Allergies Home Medications: Ambulatory Orders Acetaminophen [Tylenol] 500 mg PO HS 02/12/23 Albuterol Sulf [Ventolin Hfa Inhaler] 1 - 2 puffs INH Q4HR PRN 02/12/23 Aspirin [[place] Aspirin] 81 mg PO DAILY 02/12/23 Cetirizine [ZyrTEC] 10 mg PO HS 02/12/23 Melatonin/Pyridoxine [Melatonin 5 mg Tablet] 1 each PO HS 02/12/23 Metoprolol Succinate [Toprol Xl] 25 mg PO ONCE 02/12/23 [place]-3/Dha/Epa/Fish Oil [Fish Oil 500 mg Softgel] 1 each PO DAILY 02/12/23 Omeprazole 20 mg PO PRN PRN 02/12/23 buPROPion [Wellbutrin Xl] 150 mg PO DAILY 02/12/23 Losartan [Cozaar] 25 mg PO QPM 10/06/21 Acetaminophen [Tylenol] 500 mg PO HS 02/12/23 Albuterol Sulf [Ventolin Hfa Inhaler] 1 - 2 puffs INH Q4HR PRN 02/12/23 Aspirin [[place]rost Aspirin] 81 mg PO DAILY 02/12/23 Cetirizine [ZyrTEC] 10 mg PO HS 02/12/23 Melatonin/Pyridoxine [Melatonin 5 mg Tablet] 1 each PO HS 02/12/23 Metoprolol Succinate [Toprol Xl] 25 mg PO ONCE 02/12/23 [place]-3/Dha/Epa/Fish Oil [Fish Oil 500 mg Softgel] 1 each PO DAILY 02/12/23 Omeprazole 20 mg PO PRN PRN 02/12/23 buPROPion [Wellbutrin Xl] 150 mg PO DAILY 02/12/23 Allergies/Adverse Reactions: Allergies Allergy/AdvReac Type Severity Reaction Status Date / Time cephalexin [Cephalexin] Allergy Intermediate Hives Verified 12/13/17 16:14 codeine [Codeine] Allergy Intermediate Hives Verified 12/13/17 16:14 Penicillins Allergy Intermediate Hives Verified 12/13/17 16:14 Anes History & Medical History - Anesthetic History Anesthesia Complications: reports: No previous complications - Medical History Cardiovascular: reports: High cholesterol, Valve disorder Pulmonary: reports: Asthma Gastrointestinal: reports: GERD, Hemorrhoids Urinary: reports: None Musculoskeletal: reports: Chronic back pain Endocrine/Autoimmune: reports: HyPOthyroidism Skin: reports: None Smoking Status: Never smoker - Surgical History General: reports: EGD, Appendectomy, Colonoscopy Cardiothoracic: reports: Pacemaker, Other Gynecologic: reports: Dilation and currettage Orthopedic: reports: Spine surgery Exam General: Alert, Oriented x3 Mouth Opening: Greater than 4 Fingerbreadths Neck Mobility: Normal Mallampati classification: II Thyromental Distance: greater than 6 cm Respiratory: Lungs clear Cardiovascular: Regular rate, Normal S1, Normal S2 Plan Anesthesia Type: MAC Consent for Procedure(s) Verified and Reviewed: Yes Code Status: Attempt Resuscitation ASA classification: 3-Severe systemic disease Is this case an emergency?: No
[2023-02-13] MEDS ORDERED: MIDAZOLAM 2 MG/2 ML VIAL ONE (07:19)
[2023-02-13] MEDS ORDERED: fentaNYL 100 MCG/2 ML VIAL ONE (07:20)
[2023-02-13] MEDS ORDERED: EPINEPHrine 1 MG/ML AMP IR ONE (07:36)
[2023-02-13] MEDS ORDERED: TIMOLOL 0.5% OPHTH DROPS OPTH ONE (07:36)
[2023-02-13] MEDS ORDERED: BSS/LIDOCAINE/EPINEPHRINE 1 ML SYRINGE IO ONE (07:36)
[2023-02-13] MEDS ORDERED: BRIMONIDINE 0.2% OPHTH DROPS 5 ML OPTH ONE (07:36)
[2023-02-13] MEDS ORDERED: PROPARACAINE 0.5% OPHTH DROPS 15 ML EACHEYE ONE (07:36)
[2023-02-13] MEDS ORDERED: VANCOMYCIN OPHTH (TOPICAL) 10 MG/ML SYRINGE TOP ONE (07:36)
--- NOTE | 2023-02-13 07:56 | OPERATIVE REPORT ---
Operative Report - Other Other Information/Narrative: Date of Surgery: 02/13/23 Preop Dx: Visually significant cataract left eye. This was the first cataract surgery. Postop Dx: Same Procedure: Phacoemulsification with posterior chamber intraocular lens implant left eye Surgeon: Dr. Norris Boucher Anesthesia: Monitored anesthesia care Complications: None Operative Indications: This is a 72-year-old F with progressive vision loss in the left eye due to 2+ nuclear sclerotic and 3+ cortical cataract. Best corrected visual acuity was 20/25 with glare to 20/400 vision in the left eye. Indications for surgery were: - Difficulty reading - Difficulty seeing street signs - Difficulty driving in low light or at night - Difficulty driving at night because of headlights from other vehicles - Difficulty with glare or bright lights in any situation The patient was consented at length concerning the risks and benefits of cataract surgery after which the patient expressed a desire to proceed with surgery. Operative Procedure: The patient was taken into OR#3 and placed under monitored anesthesia care. A surgical time-out was conducted confirming correct patient, correct procedure, and correct surgical site. The patient was given topical anesthesia and then prepped and draped in the usual sterile fashion. The eye was entered at the 6 and 3 oclock positions. Intracameral Shugarcaine was injected into the anterior chamber followed by a dispersive viscoelastic. A continuous-tear curvilinear capsulorhexis was performed. The nucleus was hydrodissected and phacoemulsified. The cortex was evacuated using automated infusion and aspiration. A cohesive viscoelastic was injected into the capsular bag and a 22.0 diopter intraocular lens was inserted into the bag. Infusion and aspiration were used to evacuate the viscoelastic materials from the eye. The wounds were hydrated and the eye inflated to physiologic pressure using balanced salt solution. Approximately 0.25ml of a mixture of triamcinolone and moxifloxacin was injected trans-sclerally into the vitreous in the inferotemporal quadrant using a 30 gauge cannula. An additional 0.25ml of a mixture of triamcinolone and moxifloxacin was injected subconjunctivally in the superior quadrant for infection and inflammation prophylaxis. Wound integrity was checked with Weck-Jessy sponges. The patient was taken from the operating room in good condition and given post-op instructions.
[2023-02-13] MEDS ORDERED: LACTATED RINGERS 800 ML IV ONE (08:00)
[2023-02-13 08:30] VITALS: BP 138/71
--- NOTE | 2023-02-13 08:49 | ANESTHESIA POST OP EVALUATION ---
Anesthesia Post Eval - Post Anesthesia Eval Vitals: Last Vital Signs Temp 36.2 C L 02/13/23 08:05 Pulse 66 02/13/23 08:05 Resp 16 02/13/23 08:05 BP 138/71 H 02/13/23 08:05 Pulse Ox 96 02/13/23 08:05 O2 Flow Rate CV Function Including HR & BP: Stable Pain Control: Satisfactory Nausea & Vomiting: Negative Mental Status: Baseline Respiratory Status: Airway Patent Hydration Status: Satisfactory Anesthesia Complications: None
== END 2023-02-13 06:28 | disposition home or self-care (01) ==
LOC: SDS 06:27
PROVIDERS: ATTEND Ophthalmology
DX: H25.812 Combined forms of age-related cataract, left eye (principal); J44.9 Chronic obstructive pulmonary disease, unspecified; Z87.891 Personal history of nicotine dependence
CPT/HCPCS: 66984; A9270; J3490; J7120

== ENCOUNTER 2023-05-08 10:21 | Outpatient (CLI) | payer MEDICARE, BC ==
--- NOTE | 2023-05-09 12:56 | Mammography Report ---
BILATERAL DIGITAL SCREENING MAMMOGRAM 3D/2D: 05/08/2023 CLINICAL: Routine screening. Comparison is made to exams dated: 05/30/2021 mammogram, 07/23/2017 mammogram, 06/09/2017 mammogram, an d 12/30/2014 mammogram - [facility]. There are scattered areas of fibroglandular density in both breasts (category b / 25%-50% glandular t issue). No significant masses, calcifications, or other findings are seen in either breast. There has been no significant interval change. IMPRESSION: NEGATIVE There is no mammographic evidence of malignancy. A 1 year screening mammogram is recommended. Based on the Tyrer Cuzick model (a risk assessment model) the patients lifetime risk is 4.4% and her 10 year risk is 3.0%. According to the ACR, ACS, and NCCN guidelines, an annual breast MRI exam michaela g with mammogram is recommended if the patients lifetime risk is 20% or greater. This exam was interpreted at Station ID: [id number]. NOTE: For mammograms, a report in lay terms will be sent to the patient. Approximately 15% of breast malignancies will not be visualized mammographically. In the management of a palpable breast mass, a negative mammogram must not discourage biopsy of a clinically suspicious lesion. Electronically Signed By: Johnny sneed/[email or web address]:05/08/2023 11:56:50 letter sent: No_Letter ACR BI-RADS Category 1: Negative 3341F PARENCHYMAL PATTERN: (A) - The breast(s) demonstrate(s) scattered fibroglandular densities. BI-RADS CATEGORY: (1) - 1 Mammogram [id number] 1 year screening LATERALITY: (B)
== END 2023-05-08 10:22 | disposition home or self-care (01) ==
LOC: DI 10:21
PROVIDERS: ATTEND Family Medicine
DX: Z12.31 Encounter for screening mammogram for malignant neoplasm of breast (principal)

== ENCOUNTER 2023-08-20 14:20 | Outpatient (CLI) | payer MEDICARE, BC ==
--- NOTE | 2023-08-20 15:58 | DEXA Report ---
PROCEDURE: Dexa Spine and/or Hip INDICATIONS: POST MENOPAUSAL TECHNIQUE: Dual energy x-ray absorptiometry (DXA) was performed on a [employer] System. Regions measur ed are the AP Spine, femoral neck, and if needed forearm. COMPARISON: DEXA 05/30/2021 FINDINGS: Lumbar Spine: Bone Mineral Density 1.0 g/cm/cm,T score -0.8, compared to -0.7. Left Femoral Neck: Bone Mineral Density 0 point g/cm/cm, T score -1.7, no change. Left Hip: Bone Mineral Density 0.826 g/cm/cm,T score -1.4, compared to -1.3. (T score greater or equal to -1.0: NORMAL) (T score from -1.1 to -2.4: OSTEOPENIA) (T score less than or equal to -2.5 to: OSTEOPOROSIS) Impression: By WHO criteria, this patient has relatively stable osteopenia most prominent in the femoral neck. Patients with diagnosis of osteoporosis or osteopenia should have regular bone mineral density assess ment. For those eligible for Medicare, routine testing is allowed once every 2 years. Testing frequ ency can be increased for patients who have rapidly progressing disease or for those who are receivin g medical therapy to restore bone mass. Reviewed by: Mabel Deluca MD on 08/20/2023 3:57 PM PST Approved by: Mabel Deluca MD on 08/20/2023 3:57 PM PST Station ID: [id number]
== END 2023-08-20 14:21 | disposition home or self-care (01) ==
LOC: DI 14:20
PROVIDERS: ATTEND Family Medicine
DX: M85.88 Other specified disorders of bone density and structure, other site (principal); N95.8 Other specified menopausal and perimenopausal disorders

== ENCOUNTER 2024-04-08 08:31 | Day surgery (SDC) | payer MEDICARE, BC ==
[~2024-04-08 08:31] MED LIST changes: -KETOROLAC 0.45% OPHTH DROPS ONE
[2024-04-08] MEDS: LACTATED RINGERS 1,000 ML IV ONE (08:46)
[2024-04-08] MEDS: PROPARACAINE 0.5% OPHTH DROPS 15 ML ONE (08:55)
[2024-04-08] MEDS: PHENYLEPHRINE 2.5% OPHTH 2 ML DROPS ONE (08:56)
[2024-04-08] MEDS: CYCLOPENTOLATE 1% OPHTH DROPS 2 ML ONE (08:56)
[2024-04-08] MEDS ORDERED: MIDAZOLAM 2 MG/2 ML VIAL ONE (09:34)
[2024-04-08] MEDS ORDERED: TRIAMCIN/MOXIFLOX OPHTHALMIC 0.6 ML VIAL IO ONE (09:40)
[2024-04-08] MEDS ORDERED: EPINEPHrine 1 MG/ML AMP ONE (09:40)
[2024-04-08] MEDS ORDERED: BSS/LIDOCAINE/EPINEPHRINE 1 ML VIAL ONE (09:41)
[2024-04-08] MEDS ORDERED: BRIMONIDINE 0.2% OPHTH DROPS 5 ML ONE (09:41)
[2024-04-08] MEDS ORDERED: TIMOLOL 0.5% OPHTH DROPS ONE (09:41)
--- NOTE | 2024-04-08 10:17 | ANESTHESIA ---
Pre-Anesthesia VS, & Labs - Diagnosis R cataract - Procedure R PhacoIOL Vital Signs: Temp Pulse Resp BP Pulse Ox O2 Flow Rate 36.2 C L 79 16 145/74 H 96 04/08/24 08:59 04/08/24 08:59 04/08/24 08:59 04/08/24 08:59 04/08/24 08:59 Height: 5 ft 6 in Weight (kg): 81.9 kg Body Mass Index: 29.1 BMI Classification: Overweight - NPO >8 hours - Is Patient ?: No Home Medications and Allergies Home Medications: Ambulatory Orders Pravastatin [Pravachol] 10 mg PO HS 04/07/24 Losartan [Cozaar] 25 mg PO QPM 10/06/21 Acetaminophen [Tylenol] 500 mg PO DAILY PRN 02/12/23 Albuterol Sulf [Ventolin Hfa Inhaler] 1 - 2 puffs INH Q4HR PRN 02/12/23 Aspirin [[place] Aspirin] 81 mg PO DAILY 02/12/23 Cetirizine [ZyrTEC] 10 mg PO HS 02/12/23 Metoprolol Succinate [Toprol Xl] 25 mg PO ONCE 02/12/23 [place]-3/Dha/Epa/Fish Oil [Fish Oil 500 mg Softgel] 1 each PO DAILY 02/12/23 Omeprazole 20 mg PO PRN PRN 02/12/23 buPROPion [Wellbutrin Xl] 150 mg PO DAILY 02/12/23 Pravastatin [Pravachol] 10 mg PO HS 04/07/24 Allergies/Adverse Reactions: Allergies Allergy/AdvReac Type Severity Reaction Status Date / Time cephalexin [Cephalexin] Allergy Intermediate Hives Verified 12/13/17 16:14 codeine [Codeine] Allergy Intermediate Hives Verified 12/13/17 16:14 Penicillins Allergy Intermediate Hives Verified 12/13/17 16:14 Anes History & Medical History - Anesthetic History Anesthesia Complications: reports: No previous complications Family history of Anesthesia Complications: Denies Family history of Malignant Hyperthermia: Denies - Medical History Cardiovascular: reports: High cholesterol, Valve disorder Pulmonary: reports: Asthma Gastrointestinal: reports: GERD, Hemorrhoids Urinary: reports: None Musculoskeletal: reports: Chronic back pain Endocrine/Autoimmune: reports: HyPOthyroidism Skin: reports: None Smoking Status: Never smoker - Surgical History General: reports: EGD, Appendectomy, Colonoscopy Eyes Ears Nose Throat (EENT): reports: Cataracts Cardiothoracic: reports: CABG Gynecologic: reports: Dilation and currettage Orthopedic: reports: Spine surgery Exam General: Alert, Oriented x3, Cooperative Dental: WNL Mouth Openin Fingerbreadth Neck Mobility: Normal Mallampati classification: II Thyromental Distance: 4-6 cm Respiratory: Lungs clear Cardiovascular: Regular rate Plan Anesthesia Type: MAC Consent for Procedure(s) Verified and Reviewed: Yes Code Status: Attempt Resuscitation ASA classification: 3-Severe systemic disease Is this case an emergency?: No
[2024-04-08] MEDS: TIMOLOL 0.5% OPHTH DROPS OPTH ONE (10:22)
[2024-04-08] MEDS: BRIMONIDINE 0.2% OPHTH DROPS 5 ML OPTH ONE (10:22)
[2024-04-08] MEDS: TRIAMCIN/MOXIFLOX OPHTHALMIC 0.6 ML VIAL IO ONE (10:22)
[2024-04-08] MEDS: BSS/LIDOCAINE/EPINEPHRINE 1 ML SYRINGE IO ONE (10:22)
[2024-04-08] MEDS: EPINEPHrine 1 MG/ML AMP IR ONE (10:22)
[2024-04-08] MEDS: VANCOMYCIN OPHTH (TOPICAL) 10 MG/ML SYRINGE TOP ONE (10:23)
[2024-04-08] MEDS: PROPARACAINE 0.5% OPHTH DROPS 15 ML EACHEYE ONE (10:23)
[2024-04-08] MEDS ORDERED: fentaNYL 100 MCG/2 ML VIAL ONE (10:33)
[2024-04-08] MEDS: LACTATED RINGERS 900 ML IV ONE (10:35)
--- NOTE | 2024-04-08 10:43 | OPERATIVE REPORT ---
Operative Report - Other Other Information/Narrative: Date of Surgery: 04/08/24 Preop Dx: Visually significant cataract right eye. Cataract surgery was performed in the left eye on . Postop Dx: Same Procedure: Phacoemulsification with posterior chamber intraocular lens implant right eye Surgeon: Dr. Norris Boucher Anesthesia: Monitored anesthesia care Complications: None Operative Indications: This is a 73-year-old F with progressive vision loss in the right eye due to 2+ nuclear sclerotic and 3+ cortical cataract. Best corrected visual acuity was 20/25 with glare to 20/100 vision in the right eye. Indications for surgery were: - Overall decrease in vision - Difficulty seeing words on a computer screen - Difficulty reading - Difficulty seeing street signs - Difficulty driving in low light or at night - Difficulty driving at night because of headlights from other vehicles The patient was consented at length concerning the risks and benefits of cataract surgery after which the patient expressed a desire to proceed with surgery. Operative Procedure: The patient was taken into OR#3 and placed under monitored anesthesia care. A surgical time-out was conducted confirming correct patient, correct procedure, and correct surgical site. The patient was given topical anesthesia and then prepped and draped in the usual sterile fashion. The eye was entered at the 6 and 3 oclock positions. Intracameral Shugarcaine was injected into the anterior chamber followed by a dispersive viscoelastic. A continuous-tear curvilinear capsulorhexis was performed. The nucleus was hydrodissected and phacoemulsified. The cortex was evacuated using automated infusion and aspiration. A cohesive viscoelastic was injected into the capsular bag and a 23.5 diopter intraocular lens was inserted into the bag. Infusion and aspiration were used to evacuate the viscoelastic materials from the eye. The wounds were hydrated and the eye inflated to physiologic pressure using balanced salt solution. Approximately 0.25ml of a mixture of triamcinolone and moxifloxacin was injected trans-sclerally into the vitreous in the inferotemporal quadrant using a 30 gauge cannula. An additional 0.25ml of a mixture of triamcinolone and moxifloxacin was injected subconjunctivally in the superior quadrant for infection and inflammation prophylaxis. Wound integrity was checked with Weck-Jessy sponges. The patient was taken from the operating room in good condition and given post-op instructions.
[2024-04-08 11:06] VITALS: O2SAT 98
[2024-04-08 11:23] VITALS: BP 120/67
--- NOTE | 2024-04-08 13:00 | ANESTHESIA POST OP EVALUATION ---
Anesthesia Post Eval - Post Anesthesia Eval Vitals: Last Vital Signs Temp 36.3 C L 04/08/24 11:05 Pulse 60 04/08/24 11:05 Resp 14 04/08/24 11:05 BP 120/67 04/08/24 11:05 Pulse Ox 98 04/08/24 11:05 O2 Flow Rate CV Function Including HR & BP: Stable Pain Control: Satisfactory Nausea & Vomiting: Negative Mental Status: Baseline Respiratory Status: Airway Patent Hydration Status: Satisfactory Anesthesia Complications: None
== END 2024-04-08 08:32 | disposition home or self-care (01) ==
LOC: SDS 08:31
PROVIDERS: ATTEND Ophthalmology
DX: H25.811 Combined forms of age-related cataract, right eye (principal); J44.9 Chronic obstructive pulmonary disease, unspecified; Z87.891 Personal history of nicotine dependence; Z98.42 Cataract extraction status, left eye; J45.909 Unspecified asthma, uncomplicated; Z95.1 Presence of aortocoronary bypass graft
CPT/HCPCS: 66984; A9270; J3490; J7120